=== PATIENT | female | born 1970 | race Two or more races ===

== ENCOUNTER 2024-05-09 09:24 | Inpatient (IN) | payer MEDICAID ==
[~2024-05-09] VITALS: Ht 162.6 cm; Wt 64.4 kg
[~2024-05-09 09:24] MED LIST: METF-370 PO; PAR20T PO
--- NOTE | 2024-05-09 09:37 | ED.PDOC ---
HPI Comments 54 y.o female presents to the ED via EMS for an initial complaint of chest pain associated with a headache and dizziness. Upon ED arrival, patient expresses total body pain including chest and generalized malaise. EMS reports patient is being taken care of by family at home but had not received her medications for a while. Patient has a history of abdominal cancer diagnosed one year ago, liver disease, ETOH abuse, HTN, and DM. Patient reports last alcohol drink was one yea r ago. Patient is a poor historian, unable to provide full medical history. No family present upon assessment. Chief Complaint: Chest Pain Time Seen by MD: 09:27 Primary Care Provider: INÉS Chopra Notes: Nurses Notes, Speech Language Pathology Assistant Notes, Medications, Allergies Allergies: Coded Allergies: NO KNOWN ALLERGIES (Unverified , 06/17/13) Home Meds Reported Medications Metformin Hydrochloride (Metformin Hcl) 500 Mg Tab, 500 MG PO DAILY, TAB 06/17/13 Paroxetine (PAXIL TABLET) 20 Mg Tb, 40 MG PO DAILY 06/17/13 Information Source: Patient, Emergency Med Personnel Mode of Arrival: EMS Severity: Moderate Timing: Came on: Gradually Prehospital treatment: 12 Lead EKG, Wood Filler Location: Substernal Quality: Aching Onset: At Rest Cardiac Risk Factors: Smoker, HTN, Diabetes Modifying Factors: Nothing Past Medical History PAST MEDICAL HISTORY: Cancer (abdominal ), DM, HTN, Liver Surgical History: Cholecystectomy, DOCUMENT IMAGING MANAGER History: No Pertinent DOCUMENT IMAGING MANAGER History Family History Family History: Unobtainable Social History Smoker: Cigarettes Alcohol: Occasionally Drugs: Denies Drug Use Lives In: Home Constitutional: denies: chills, diaphoresis, fatigue, fever, malaise, sweats, weakness, others EENTM: denies: blurred vision, double vision, ear bleeding, ear discharge, ear drainage, ear pain, ear ringing, eye pain, eye redness, hearing loss, mouth pain, mouth swelling, nasal discharge, nose bleeding, nose congestion, nose pain, photophobia, tearing, throat pain, throat swelling, voice changes, others Respiratory: denies: cough, hemoptysis, orthopnea, SOB at rest, shortness of breath, SOB with excertion, stridor, wheezing, others Cardiovascular: reports: chest pain; denies: dizzy spells, diaphoresis, Dyspnea on exertion, edema, irregular heart beat, left arm pain, lightheadedness, palpitations, PND, syncope, others Gastrointestinal: denies: abdomen distended, abdominal pain, blood streaked bowels, constipated, diarrhea, dysphagia, difficulty swallowing, hematemesis, melena, nausea, poor appetite, poor fluid intake, rectal bleeding, rectal pain, vomiting, others Genitourinary: denies: abnormal vagina bleeding, burning, dyspareunia, dysuria, flank pain, frequency, hematuria, incontinence, pain, , vagina discharge, urgency, others Neurological: reports: dizziness, headache; denies: fainting, left sided numbness, left sided weakness, numbness, paresthesia, pre-existing deficit, right sided numbness, right sided weakness, seizure, speech problems, tingling, tremors, weakness, others Musculoskeletal: reports: muscle pain; denies: back pain, gout, joint pain, joint swelling, muscle stiffness, neck pain, others Integumetry: denies: bruises, change in color, change in hair/nails, dryness, laceration, lesions, lumps, rash, wounds, others Allergic/Immunocompromised: denies: Difficulty Healing, Frequent Infections, Hives, Itching, others Hematologic/Lymphatic: denies: anemia, blood clots, easy bleeding, easy bruising, swollen glands, others Endocrine: denies: excessive hunger, excessive sweating, excessive thirst, excessive urination, flushing, intolerance to cold, intolerance to heat, unexplained weight gain, unexplained weight loss, others Psychiatric: denies: anxiety, bipolar disorder, depression, hopeless, panic disorder, schizophrenia, sleepless, suicidal, others All Other Systems: Reviewed and Negative Physical Exam General Appearance: Moderate Distress HEENT: Scleral Icterus (L), Scleral Icterus (R) Neck: Full Range of Motion, Non-Tender, Normal, Normal Inspection Respiratory: Chest Non-Tender, Lungs Clear, No Accessory Muscle Use, No Respiratory Distress, Normal Breath Sounds Cardiovascular: No Edema, No JVD, No Murmur, No Gallop, Normal Peripheral Pulses, Regular Rate/Rhythm Breast Exam: Deferred Gastrointestinal: Soft Genitalia: Deferred Pelvic: Deferred Rectal: Deferred Extremities: No calf tenderness, Normal inspection Musculoskeletal : Apperance: Normal Neurologic: Alert Cerebellar Function: NOT DONE Reflexes: NOT DONE Skin: Pallor Peripheral Pulses: 3+ Radial (R), 3+ Radial (L) Lymphatic: No Adenopathy Was a procedure done? Was a procedure done?: No CP Differential Dx Differential Diagnosis: A-fib, A-Flutter, Angina, Anxiety / Panic Attack, Electrolyte Disorder Differential Diagnosis: Angina, Chest Wall Pain, Cholelithiasis, Costochondritis, Esophageal reflux/spasm, Gastritis, Myocardial Infarction, Pericarditis X-Ray, Labs, Meds, VS Vital Signs Date Time Temp Pulse Resp B/P (MAP) Pulse Ox O2 Delivery O2 Flow Rate FiO2 05/09/24 10:35 181/103 05/09/24 10:19 79 05/09/24 09:33 97.7 78 15 198/105 (136) 98 05/09/24 09:31 83 Lab Test 05/09/24 09:39 Range/Units White Blood Count 6.0 4.4-10.8 10^3/uL Red Blood Count 5.69 H 4.0-5.20 10^6/uL Hemoglobin 16.9 H 12.2-16.2 g/dL Hematocrit 50.4 H 36.0-46.0 % Mean Corpuscular Volume 88.7 80.0-100.0 fL Mean Corpuscular Hemoglobin 29.7 28.0-32.0 pg Mean Corpuscular Hemoglobin Concent 33.5 32.0-36.0 g/dL Red Cell Distribution Width 14.7 H 11.8-14.3 % Platelet Count 186 140-450 10^3/uL Mean Platelet Volume 9.1 6.9-10.8 fL Neutrophils (%) (Auto) 74.8 37.0-80.0 % Lymphocytes (%) (Auto) 16.8 10.0-50.0 % Monocytes (%) (Auto) 8.2 0.0-12.0 % Eosinophils (%) (Auto) 0.0 0.0-7.0 % Basophils (%) (Auto) 0.2 0.0-2.0 % Neutrophils # (Auto) 4.5 1.6-8.6 10 ^3/uL Lymphocytes # (Auto) 1.0 0.4-5.4 10 ^3/uL Monocytes # (Auto) 0.5 0-1.3 10 ^3/uL Eosinophils # (Auto) 0 0-0.8 10 ^3/uL Basophils # (Auto) 0 0-0.2 10 ^3/uL Nucleated Red Blood Cells 0.1 % Sodium Level 132 L 136-145 mmol/L Potassium Level 4.7 3.5-5.1 mmol/L Chloride Level 97 L 98-107 mmol/L Carbon Dioxide Level 29 20-31 mmol/L Anion Gap 6 5-15 Blood Urea Nitrogen 13 9-23 mg/dL Creatinine 0.69 0.550-1.02 mg/dL Glomerular Filtration Rate Calc 102 >90 mL/min BUN/Creatinine Ratio 18.8 10.0-20.0 Serum Glucose 426 *H 74-106 mg/dL Calcium Level 9.3 8.7-10.4 mg/dL Total Bilirubin 0.5 0.2-1.0 mg/dL Aspartate Amino Transferase (AST) 28 13-40 U/L Alanine Aminotransferase (ALT) 33 7-40 U/L Alkaline Phosphatase 169 H 46-116 U/L Troponin I High Sensitivity 200 *H </=34 ng/L Total Protein 6.0 5.7-8.2 g/dL Albumin 3.3 3.2-4.8 g/dL Current Medications Medications (Trade) Dose Ordered Sig/Lou Route Start Time Stop Time Status Last Admin Hydralazine HCl (Apresoline Injection) 10 mg ONCE ONCE IV 05/09/24 10:00 05/09/24 10:01 DC 05/09/24 10:35 Aspirin 325 mg ONCE ONCE PO 05/09/24 10:00 05/09/24 10:01 DC 05/09/24 10:36 Patient alert. Complaining of chest pain. Blood pressure elevated. Saturation pristine on room air. Liver disease. States that she has stopped drinking a year ago. Continues to smoke cigarettes. Counseled patient on effects of smoking cigarettes for 15 minutes. Was given hydralazine. Was given aspirin. Reviewed her previous visit. Explained to the patient. Continuous cardiac monitoring. EKG reviewed does not show any acute changes. Time of 1ST Reevaluation: 09:37 Reevaluation 1ST: Unchanged Patient Education/Counseling: Diagnosis Family Education/Counseling: No Family Present Additional Information The following tests were ordered, and results were reviewed by me: Labs, XY, EKG, PHA Additional Information was gathered from interviewing the following independent historians: Paramedics I reviewed and agreed with the following test results read by other providers: X-Ray IMPRESSION: Small left pleural effusion and left retrocardiac opacity. Cardiomegaly. I discussed treatment and results with medical personnel and patient Departure 1 Departure Time of Disposition: 09:51 Impression: Primary Impression: Hypertensive emergency Additional Impressions: Chest pain of unknown etiology Uncontrolled diabetes mellitus Qualified Codes: E13.65 - Other specified diabetes mellitus with hyperglycemia Disposition: ADMITTED INPATIENT Admit to: Med Surg Condition: Guarded Critical Care Note Critical Care Time?: Yes (45 min-critical care time only) Stability Stability form required: No Heart Score Heart Score: Heart Score Response (Comments) Value History Slightly Suspicious 0 EKG Normal 0 Age 45-64 1 Risk Factors >3 or Hx ASHD 2 Troponin Normal limit 0 Total 3 I personally scribed for GIOVANNA AVILA MD ([email or web address]) on 05/09/24 at 09:37. Electronically submitted by Hanna López ([facility]). I personally scribed for GIOVANNA AVILA MD ([email or web address]) on 05/09/24 at 10:24. Electronically submitted by Hanna López ([facility]). I personally scribed for GIOVANNA AVILA MD ([email or web address]) on 05/09/24 at 11:22. Electronically submitted by Hanna López ([facility]). I personally scribed for GIOVANNA AVILA MD ([email or web address]) on 05/09/24 at 11:48. Electronically submitted by Hanna López ([facility]). GIOVANNA AVILA MD May 09, 2024 09:37
[2024-05-09 10:08] LABS: Basophils # (auto) 0 10 ^3/uL (0-0.2); Basophils % (auto) 0.2 % (0.0-2.0); Eosinophils # (auto) 0 10 ^3/uL (0-0.8); Hematocrit 50.4 % (36.0-46.0); Hemoglobin 16.9 g/dL (12.2-16.2); Lymphocytes % (auto) 16.8 % (10.0-50.0); Mean Corpuscular Hemoglobin 29.7 pg (28.0-32.0); Mean Corpuscular Hgb Conc. 33.5 g/dL (32.0-36.0); Mean Corpuscular Volume 88.7 fL (80.0-100.0); Monocytes # (auto) 0.5 10 ^3/uL (0-1.3); Monocytes % (auto) 8.2 % (0.0-12.0); Neutrophils # (auto) 4.5 10 ^3/uL (1.6-8.6); Neutrophils % (auto) 74.8 % (37.0-80.0); Nucleated Red Blood Cells % 0.1 %; Platelet Count (auto) 186 10^3/uL (140-450); Red Blood Cells 5.69 10^6/uL (4.0-5.20); Red Cell Distribution Width 14.7 % (11.8-14.3)
--- NOTE | 2024-05-09 10:13 | DVH ---
EXAM: XY CHEST PORTABLE Indication: CP Technique: Single frontal view of the chest was obtained Comparison: None FINDINGS: Lines and Tubes: None Lungs: Left retrocardiac opacity. Pleura: Small left pleural effusion. No pneumothorax. Cardiomediastinal contours: Cardiomegaly. Atherosclerotic vascular calcifications of the thoracic aor ta are noted. Bones: No acute osseous abnormality. IMPRESSION: Small left pleural effusion and left retrocardiac opacity. Cardiomegaly.
[2024-05-09] MEDS: hydrALAZINE HCL 20 MG/ML VL IV ONE (10:35)
[2024-05-09] MEDS: ASPirin 325 MG TAB PO ONE (10:36)
[2024-05-09 10:38] LABS: Alanine Aminotransferase 33 U/L (7-40); Albumin 3.3 g/dL (3.2-4.8); Anion Gap 6 (5-15); Aspartate Aminotransferase 28 U/L (13-40); BUN/Creatinine Ratio 18.8 (10.0-20.0); Bilirubin, Total 0.5 mg/dL (0.2-1.0); Blood Urea Nitrogen 13 mg/dL (9-23); Calcium 9.3 mg/dL (8.7-10.4); Carbon Dioxide 29 mmol/L (20-31); Potassium 4.7 mmol/L (3.5-5.1)
[2024-05-09 10:44] LABS: Alkaline Phosphatase 169 U/L (46-116); Chloride 97 mmol/L (98-107); Glucose 426 mg/dL (74-106); Sodium 132 mmol/L (136-145)
[2024-05-09] MEDS ORDERED: MAALOX PLUS or MAALOX 30 ML PO PRN (11:15)
[2024-05-09] MEDS ORDERED: ACETAMINOPHEN 325 MG TAB PO PRN (11:15)
[2024-05-09] MEDS: SODIUM CHLORIDE 0.9% 1,000 ML IV SCH (11:15)
[2024-05-09] MEDS ORDERED: ZOLPIDEM TARTRATE 5 MG TAB PO PRN (11:15)
[2024-05-09] MEDS ORDERED: MORPHINE SULFATE INJ 2 MG/ml SYRG IV PRN (11:15)
[2024-05-09] MEDS ORDERED: NITROGLYCERIN 0.4 MG SL TAB SL PRN ×2 (11:15)
[2024-05-09] MEDS: LISINOPRIL 20 MG TAB PO SCH (11:15)
[2024-05-09] MEDS ORDERED: ONDANSETRON HCL 4 MG/2 ML VIAL IV PRN (11:15)
[2024-05-09] MEDS ORDERED: MORPHINE SULFATE 4 MG/ML SYR/VIAL IV PRN (11:15)
--- NOTE | 2024-05-09 11:43 | DVHHP2 ---
History of Present Illness Reason for Visit: Chest pain History of Present Illness 54-year-old patient with morbid obesity past medical history of hypertension diabetes and smoker giving her 3 comorbid conditions patient comes to the ED with complaints of chest pain patient states that she has been having chest pain and also total body pain and general weakness for the past few days but today her main complaint is having pain in the chest patient states that she has a history of cancer in the abdomen that was diagnosed a year ago has a history of alcohol abuse and states that she has discontinued drinking alcohol since a year ago when she was initially diagnosed patient does present as a poor historian a nd unable to give a very clear picture but the majority of her complaint is that she is currently having chest pain that is not alleviating or not improving the plan as of now is to admit based on ED recommendation Cardiovascular: HTN Smoke: 1 pack per day ALCOHOL: none (Former heavy drinker) Review of Systems Constitutional: Yes: Weakness; No: Fever, Chills, Sweats, Malaise, Other Eyes: No: Pain, Vision change, Conjunctivae inflammation, Eyelid inflammation, Other, Redness ENT: No: Ear pain, Ear discharge, Nose pain, Nose discharge, Nose congestion, Mouth pain, Mouth swelling, Throat pain, Throat swelling, Other Respiratory: Cough, Dry, Shortness of breath; No: SOB with excertion, Wheezing, Hemoptysis, Pleuritic Pain, Sputum, Wheezing, Other Cardiovascular: Chest Pain, Palpitations; No: Orthopnea, Paroxysmal Noc. Dyspnea, Edema, Lt Headedness, Other Gastrointestinal: No: Nausea, Vomiting, Abdominal Pain, Diarrhea, Constipation, Melena, Hematochezia, Other Genitourinary: No Dysuria, No Frequency, No Incontinence, No Hematuria, No Retention, No Other Musculoskeletal: No: other, neck pain, shoulder pain, arm pain, back pain, hand pain, leg pain, foot pain Skin: No: Rash, Lesions, Jaundice, Bruising, Other Neurological: No: Weakness, Numbness, Incoordination, Change in speech, Confusion, Seizures, Other Allergies: Coded Allergies: NO KNOWN ALLERGIES (Unverified , 06/17/13) Exam Vital Signs Vital Signs Date Time Temp Pulse Resp B/P (MAP) Pulse Ox O2 Delivery O2 Flow Rate FiO2 05/09/24 10:35 181/103 05/09/24 10:19 79 05/09/24 09:33 97.7 15 98 General Appearance: Alert, Oriented X3, Cooperative HEENT: Atraumatic, PERRLA Respiratory: Clear to auscultation Cardiovascular: Regular rate, Normal S1 Abdominal: Normal bowel sounds, Soft Extremities: No clubbing, No cyanosis Skin: No rashes, No breakdown Neuro: Normal speech Psych/Mental Status: Mood NL Labs/Xrays Labs Test 05/09/24 11:30 05/09/24 09:39 Range/Units White Blood Count 6.0 4.4-10.8 10^3/uL Red Blood Count 5.69 H 4.0-5.20 10^6/uL Hemoglobin 16.9 H 12.2-16.2 g/dL Hematocrit 50.4 H 36.0-46.0 % Mean Corpuscular Volume 88.7 80.0-100.0 fL Mean Corpuscular Hemoglobin 29.7 28.0-32.0 pg Mean Corpuscular Hemoglobin Concent 33.5 32.0-36.0 g/dL Red Cell Distribution Width 14.7 H 11.8-14.3 % Platelet Count 186 140-450 10^3/uL Mean Platelet Volume 9.1 6.9-10.8 fL Neutrophils (%) (Auto) 74.8 37.0-80.0 % Lymphocytes (%) (Auto) 16.8 10.0-50.0 % Monocytes (%) (Auto) 8.2 0.0-12.0 % Eosinophils (%) (Auto) 0.0 0.0-7.0 % Basophils (%) (Auto) 0.2 0.0-2.0 % Neutrophils # (Auto) 4.5 1.6-8.6 10 ^3/uL Lymphocytes # (Auto) 1.0 0.4-5.4 10 ^3/uL Monocytes # (Auto) 0.5 0-1.3 10 ^3/uL Eosinophils # (Auto) 0 0-0.8 10 ^3/uL Basophils # (Auto) 0 0-0.2 10 ^3/uL Nucleated Red Blood Cells 0.1 % Sodium Level 132 L 136-145 mmol/L Potassium Level 4.7 3.5-5.1 mmol/L Chloride Level 97 L 98-107 mmol/L Carbon Dioxide Level 29 20-31 mmol/L Anion Gap 6 5-15 Blood Urea Nitrogen 13 9-23 mg/dL Creatinine 0.69 0.550-1.02 mg/dL Glomerular Filtration Rate Calc 102 >90 mL/min BUN/Creatinine Ratio 18.8 10.0-20.0 Serum Glucose 426 *H 74-106 mg/dL Calcium Level 9.3 8.7-10.4 mg/dL Total Bilirubin 0.5 0.2-1.0 mg/dL Aspartate Amino Transferase (AST) 28 13-40 U/L Alanine Aminotransferase (ALT) 33 7-40 U/L Alkaline Phosphatase 169 H 46-116 U/L Total Protein 6.0 5.7-8.2 g/dL Albumin 3.3 3.2-4.8 g/dL Assessment/Plan Assessment/Plan Admit to telemetry NSTEMI With the associated chest pain Patient with troponins greater than 200 We will follow chest pain protocol Cardiology consult Patient also with hypertensive urgency the evaluation of blood pressure shows blood pressure on the systolic side of 200 versus the does diastolic above 100 Patient with also severe hyperglycemia blood sugars above 400 No anion gap noted however patient is at both a fluid deficit And hypertensive urgency We will start with medication terms of continued management P.r.n. medication for the management with hydralazine Aggressive insulin sliding scale Long-acting insulin to be given b.i.d. for long-term control Patient requires IV hydration Fluid management will be rodriguez here in managing patient's blood pressure in the setting of also giving fluids will also be important Morbid obesity BMI > 30 Plan discussed with: Patient My Orders Orders - NATO ROBERSON MD Procedure Category Date Status Time * Cardiology Consult CONS 05/09/24 Transmitted 11:13 Glucose Blood PHA 05/09/24 In Process (Accu-Chek Comfort 12:00 Dextrose 50% Syringe PHA 05/09/24 In Process 11:15 Paroxetine Tablet PHA 05/10/24 In Process (Paxil Tablet) 10:00 Insulin Lantus PHA 05/09/24 In Process (Glargine) (Lantus) 22:00 Hydralazine Injection PHA 05/09/24 In Process (Apresoline Inject 11:15 Admit ADMIT 05/09/24 Transmitted 11:13 Code Status CODE 05/09/24 Transmitted 11:13 Sodium Chloride 0.9% PHA 05/09/24 In Process 11:15 Aspirin Tablet PHA 05/10/24 In Process 10:00 Atorvastatin (Lipitor) PHA 05/09/24 In Process 22:00 Metoprolol Tartrate PHA 05/09/24 In Process Tablet (Lopressor Ta 11:15 Lisinopril Tablet PHA 05/09/24 In Process (Zestril Tablet) 11:15 Acetaminophen Tablet PHA 05/09/24 In Process (Tylenol Tablet) 11:15 Zolpidem Tartrate PHA 05/09/24 In Process (Ambien) 11:15 Lorazepam Tablet PHA 05/09/24 In Process (Ativan Tablet) 11:15 Docusate Sodium PHA 05/10/24 In Process Capsule (Colace 10:00 Complete Blood Count LAB 05/10/24 Verified 04:00 Basic Metabolic Panel LAB 05/10/24 Verified 04:00 Ondansetron Hcl PHA 05/09/24 In Process (Zofran) 11:15 Electrocardigram EKG 05/09/24 Logged 11:13 Alum & Mag PHA 05/09/24 In Process Hydrox-Simethicone 11:15 Cardiac JANY 05/09/24 In Process Rehabilitation - Outpa Nitroglycerin PHA 05/09/24 In Process Sublingual (Ntrostat 11:15 Morphine Sulfate PHA 05/09/24 In Process Injection 11:15 Stat Ekg For Chest JANY 05/09/24 In Process Pain 11:13 Notify Md Of Changes JANY 05/09/24 In Process From Base 11:13 Linotype Worker For JANY 05/09/24 In Process 24 Hours 11:13 Emergency Dysrhythmia JANY 05/09/24 In Process Protocol 11:13 Rhythm Strips Once JANY 05/09/24 In Process Every Shift 11:13 Oxygen By Nasal RT 05/09/24 Transmitted Cannula 11:13 Electrocardigram EKG 05/09/24 Logged 12:13 Electrocardigram EKG 05/09/24 Logged 14:13 Insulin R (Human) PHA 05/09/24 In Process (Insulin R) 12:00 Problem List: (1) Chest pain of unknown etiology (2) Hypertensive emergency (3) Uncontrolled diabetes mellitus (4) possible acute coronary syndrome (5) Acute chest pain Date of Service: May 09, 2024 Billing Provider: NATO ROBERSON MD Common Visit Codes: [id number] INP/OBS CARE (HIGH) NATO ROBERSON MD May 09, 2024 11:43
[2024-05-09] MEDS: InsuLIN REG 1unit/0.01ml Soln (100units/ml) SC SCH (12:00)
[2024-05-09] MEDS: ACCU-CHEK COMFORT CURVE STRIP VI SCH (12:26)
[2024-05-09] MEDS: METOPROLOL TARTRATE 25 MG TAB PO SCH (12:38)
[2024-05-09] MEDS: LORazepam 0.5 MG TAB PO PRN (12:38)
[2024-05-09] MEDS: InsuLIN REG 1unit/0.01ml Soln (100units/ml) IV ONE (12:45)
[2024-05-09] MEDS: NIFEdipine ER 30 MG TAB PO ONE (16:06)
[2024-05-09 16:41] VITALS: PULSE 89; RESP 20; O2SAT 96
--- NOTE | 2024-05-09 16:42 | DVHINCON2 ---
Date Seen: May 09, 2024 Referring Physician MD Radha Reason for Consultation Elevated troponin, chest pain History of Present Illness This is a 54-year-old female patient who presents to the emergency room with chief complaint of chest pain for one week and bilateral lower extremity swell ing for one month. The patient is a very poor historian. The patient is primarily Italian speaking. The patient describes the chest pain as unprovoked, sharp in nature, midsternal with radiation to bilateral chest. She denies any associated symptoms. Of note, the patient came in with a blood pressure reaching as high as 198/105. Initial twelve lead electrocardiogram reveals no rmal sinus rhythm without any significant ST segment changes. Initial troponin level of 200ng/L with down trend thereafter. Significant past medical history includes hypertension, hyperlipidemia, unspecified cancer, type 2 diabetes mellitus, liver disease, previous alcohol dependence, and tobacco use. Per bedside RN, patient was being taken care of by family, but recently had a disagreement and has not been taking her medications as prescribed. Patient denies following up with a automotive teacher in the outpatient setting. Past Medical History Past medical history reviewed. No other significant than mentioned above. Past Surgical History Cholecystectomy Family History Family history reviewed. Social History Patient reports previous alcoholism, quit drinking approximately one year ago Patient has a 10 pack-year history, smokes approximately half a pack per day Patient denies any illicit drug use Allergies: Coded Allergies: NO KNOWN ALLERGIES (Unverified , 06/17/13) Home Meds Reported Medications Metformin Hydrochloride (Metformin Hcl) 500 Mg Tab, 500 MG PO DAILY, TAB 06/17/13 Paroxetine (PAXIL TABLET) 20 Mg Tb, 40 MG PO DAILY 06/17/13 Home Meds Home medications reviewed. Current Medications Current Medications Medications (Trade) Dose Ordered Sig/Lou Route PRN Reason Start Time Stop Time Status Last Admin Diagnostic Test (Pha) (Accu-Chek Comfort Curve T) 1 strip IQ4HR 05/09/24 12:00 05/09/24 16:06 Insulin Human Regular (InsuLIN R) IQ4HR SC 05/09/24 12:00 Dextrose 50 ml UD PRN IV Blood Sugar LESS THAN 60 05/09/24 11:15 Paroxetine HCl (Paxil Tablet) 40 mg DAILY PO 05/10/24 10:00 Insulin Glargine (Lantus) 20 units BID@0700,2200 SC 05/09/24 22:00 Hydralazine HCl (Apresoline Injection) 10 mg Q6HPRN PRN IV SBP>160 05/09/24 11:15 Sodium Chloride 1,000 ml @ 100 mls/hr Q10H IV 05/09/24 11:15 05/09/24 11:15 Aspirin 81 mg DAILY PO 05/10/24 10:00 Atorvastatin Calcium (Lipitor) 80 mg HS PO 05/09/24 22:00 Metoprolol Tartrate (Lopressor Tablet) 25 mg Q12HR PO 05/09/24 11:15 05/09/24 12:38 Lisinopril (Zestril Tablet) 20 mg DAILY PO 05/09/24 11:15 05/09/24 11:15 Morphine Sulfate 2 mg Q30MP PRN IV FOR CHEST PAIN 05/09/24 11:15 UNV Acetaminophen (Tylenol Tablet) 650 mg Q6HP PRN PO MILD PAIN (1-3 PAIN SCALE) 05/09/24 11:15 Zolpidem Tartrate (Ambien) 5 mg QHSP PRN PO FOR INSOMNIA 05/09/24 11:15 Lorazepam (Ativan Tablet) 0.5 mg Q6HP PRN PO ANXIETY 05/09/24 11:15 05/09/24 12:38 Docusate Sodium (Colace Capsule) 100 mg DAILY PO 05/10/24 10:00 Nitroglycerin (Ntrostat Sublingual) 0.4 mg Q5MINP PRN SL FOR CHEST PAIN 05/09/24 11:15 UNV Ondansetron HCl (Zofran) 4 mg Q4HP PRN IV NAUSEA / VOMITING 05/09/24 11:15 Al Hydrox/Mg Hydrox/Simethicone (Maalox Plus) 30 ml Q6HPRN PRN PO FOR STOMACH DISTRESS 05/09/24 11:15 Nitroglycerin (Ntrostat Sublingual) 0.4 mg Q5MINP PRN SL FOR CHEST PAIN 05/09/24 11:15 Morphine Sulfate 2 mg Q30M PRN IV FOR CHEST PAIN 05/09/24 11:15 Review of Systems Constitutional: No symptom reported Ears, Nose, & Throat: No symptom reported Eyes: No symptom reported Neurological: No symptoms reported Pulmonary/Respiratory: No symptoms reported Cardiovascular: Chest pain, bilateral lower extremity edema Gastrointestinal: No symptom reported Genitourinary: No symptom reported Musculoskeletal: No symptom reported Skin: No symptom reported Psychiatric: No symptom reported Endocrine: No symptom reported Hematologic/Lymphatic: No symptom reported Vital Signs Vital Signs Date Time Temp Pulse Resp B/P (MAP) Pulse Ox O2 Delivery O2 Flow Rate FiO2 05/09/24 16:06 128/64 05/09/24 16:00 89 20 96 05/09/24 12:00 98.2 98.2 Physical Exam General Appearance: Unkempt, disheveled appearance Pulmonary/Respiratory: Clear, bilateral breaths sounds. Cardiovascular/Chest: Regular rate and rhythm. Peripheral Pulses: 2+ Radial (R). 2+ Radial (L). 2+ Pedal (R). 2+ Pedal (L) Abdominal Exam: Normal bowel sounds. Ankle Exam: 1+ pitting edema Lower extremities: 1+ pitting edema Neuro/Mental Status: A/OX4, coherent. Thoughts/Psych: Normal thought pattern. Appropriate mood and affect. Good judgment and insight. Appearance: No acute distress. Skin Exam: Normal inspection. Normal color. Warm and dry. Labs/Diagnostic Data Labs Test 05/09/24 16:09 05/09/24 11:30 05/09/24 09:39 Range/Units POC Glucose 382 H 70-106 mg/dl Troponin I High Sensitivity 174 *H </=34 ng/L White Blood Count 6.0 4.4-10.8 10^3/uL Red Blood Count 5.69 H 4.0-5.20 10^6/uL Hemoglobin 16.9 H 12.2-16.2 g/dL Hematocrit 50.4 H 36.0-46.0 % Mean Corpuscular Volume 88.7 80.0-100.0 fL Mean Corpuscular Hemoglobin 29.7 28.0-32.0 pg Mean Corpuscular Hemoglobin Concent 33.5 32.0-36.0 g/dL Red Cell Distribution Width 14.7 H 11.8-14.3 % Platelet Count 186 140-450 10^3/uL Mean Platelet Volume 9.1 6.9-10.8 fL Neutrophils (%) (Auto) 74.8 37.0-80.0 % Lymphocytes (%) (Auto) 16.8 10.0-50.0 % Monocytes (%) (Auto) 8.2 0.0-12.0 % Eosinophils (%) (Auto) 0.0 0.0-7.0 % Basophils (%) (Auto) 0.2 0.0-2.0 % Neutrophils # (Auto) 4.5 1.6-8.6 10 ^3/uL Lymphocytes # (Auto) 1.0 0.4-5.4 10 ^3/uL Monocytes # (Auto) 0.5 0-1.3 10 ^3/uL Eosinophils # (Auto) 0 0-0.8 10 ^3/uL Basophils # (Auto) 0 0-0.2 10 ^3/uL Nucleated Red Blood Cells 0.1 % Sodium Level 132 L 136-145 mmol/L Potassium Level 4.7 3.5-5.1 mmol/L Chloride Level 97 L 98-107 mmol/L Carbon Dioxide Level 29 20-31 mmol/L Anion Gap 6 5-15 Blood Urea Nitrogen 13 9-23 mg/dL Creatinine 0.69 0.550-1.02 mg/dL Glomerular Filtration Rate Calc 102 >90 mL/min BUN/Creatinine Ratio 18.8 10.0-20.0 Serum Glucose 426 *H 74-106 mg/dL Calcium Level 9.3 8.7-10.4 mg/dL Total Bilirubin 0.5 0.2-1.0 mg/dL Aspartate Amino Transferase (AST) 28 13-40 U/L Alanine Aminotransferase (ALT) 33 7-40 U/L Alkaline Phosphatase 169 H 46-116 U/L Total Protein 6.0 5.7-8.2 g/dL Albumin 3.3 3.2-4.8 g/dL Assessment Hypertensive urgency NSTEMI type II secondary to above Rule out structural heart disease Hyperlipidemia Liver disease Type 2 diabetes mellitus ?Cancer History of alcohol abuse Medical noncompliance Plan/Recommendation We will continue with the following plan/recommendations (Dr. Mcarthur): * Echocardiogram to evaluate cardiac function * Aggressive BP control * Up titrate as tolerated * Renal ultrasound to rule out renal artery stenosis * Cardiac surveillance * Labs: TSH, lipid panel, Hgb A1c * UDS Patient seen and examined at bedside with . Elevated troponin level likely secondary to hypertensive urgency. At this time we will recommend aggressive blood pressure control. Thank you for allowing us to care for this patient. Please call with any questions or concerns. Critical care time spent: 44 minutes This medical document was created using an electronic medical record system with voice recognition software and computerized dictation system. Although this document has been carefully reviewed, there might still be some phonetic and typographical errors. Occasional wrong-word or ``sound-alike substitutions may have occurred due to the inherent limitations of voice recognition software. These areas are purely typographical due to imperfections of the software programs and do not reflect any compromise in the patient's medical care. Please read the chart carefully and recognize, using context, where these substitutions have occurred. Plan discussed with: Patient Date of Service: May 09, 2024 Billing Provider: BA MCARTHUR MD Cardiology Common Codes: 09149-[id number] INP/OBS CARE (High) Cardiology Consultation Codes: [id number]-[id number] CONSULT <45MIN RODRIGO LOPEZ May 09, 2024 16:42
[2024-05-09 17:45] VITALS: BP 152/98; PULSE 90; RESP 18; TEMP 97.8; O2SAT 98
[2024-05-09 18:27] VITALS: BP 152/98; PULSE 90; RESP 18; TEMP 97.8; O2SAT 98
--- NOTE | 2024-05-09 19:14 | ECG ---
[facility] Test Date: 2024-05-09 Test Time: 10:17:18 Pat Name: KYLE MCCLURE Department: ED Room: 0289T B Gender: F Instant Print Operator: DARINEL : 1970 Requested By: GIOVANNA AVILA Order Number: [id number] Reading MD: Blayne Garcia Measurements Intervals [place] Rate: 79 P: 60 MD: 142 QRS: -14 QRSD: 86 T: 50 QT: 412 QTc: 473 Interpretive Statements Sinus rhythm Probable left atrial enlargement Anterior infarct, old Electronically Signed On 05-10-2024 12:50:15 PST by Blayne Garcia Please click the below link to view image of tracing.
--- NOTE | 2024-05-09 19:14 | ECG ---
[facility] Test Date: 2024-05-09 Test Time: 09:29:07 Pat Name: KYLE MCCLURE Department: ed Room: [facility]9T B Gender: F Quarry Supervisor: viki : 1970 Requested By: GIOVANNA AVILA Order Number: [id number] Reading MD: Blayne Garcia Measurements Intervals [place] Rate: 83 P: 38 MN: 131 QRS: -2 QRSD: 89 T: 32 QT: 379 QTc: 446 Interpretive Statements Sinus rhythm Ventricular premature complex Probable left atrial enlargement Anterior infarct, old Minimal ST depression Electronically Signed On 05-10-2024 12:50:04 PST by Blayne Garcia Please click the below link to view image of tracing.
[2024-05-09 20:00] VITALS: PULSE 87; RESP 18; O2SAT 95
[2024-05-09 21:00] VITALS: TEMP 97.3
[2024-05-09] MEDS: ATORVASTATIN 20 MG TAB PO SCH (22:20)
[2024-05-09] MEDS: INSULIN LANTUS (GLARGINE) 1 /0.01ml (100units/ml) SC SCH (22:43)
[2024-05-10] VITALS (8 sets, daily range): BP systolic 105–160; BP diastolic 68–92; PULSE 55–83; RESP 13–18; TEMP 97–98.3; O2SAT 92–98
[2024-05-10 06:16] LABS: Basophils # (auto) 0 10 ^3/uL (0-0.2); Basophils % (auto) 0.3 % (0.0-2.0); Eosinophils # (auto) 0 10 ^3/uL (0-0.8); Eosinophils % (auto) 0.2 % (0.0-7.0); Lymphocytes # (auto) 1.3 10 ^3/uL (0.4-5.4); Monocytes # (auto) 0.5 10 ^3/uL (0-1.3)
[2024-05-10 06:19] LABS: Anion Gap 4 (5-15); Carbon Dioxide 26 mmol/L (20-31); Chloride 104 mmol/L (98-107); Hematocrit 51.8 % (36.0-46.0); Hemoglobin 17.8 g/dL (12.2-16.2); Mean Corpuscular Hemoglobin 30.1 pg (28.0-32.0); Mean Corpuscular Hgb Conc. 34.4 g/dL (32.0-36.0); Mean Corpuscular Volume 87.7 fL (80.0-100.0); Monocytes % (auto) 8.6 % (0.0-12.0); Neutrophils % (auto) 68.9 % (37.0-80.0); Nucleated Red Blood Cells % 0.4 %; Platelet Count (auto) 235 10^3/uL (140-450); Potassium 3.7 mmol/L (3.5-5.1); Red Blood Cells 5.91 10^6/uL (4.0-5.20); Red Cell Distribution Width 14.6 % (11.8-14.3); White Blood Cell 5.8 10^3/uL (4.4-10.8)
[2024-05-10 06:20] LABS: Calcium 8.9 mg/dL (8.7-10.4)
[2024-05-10 06:25] LABS: BUN/Creatinine Ratio 18.8 (10.0-20.0); Blood Urea Nitrogen 16 mg/dL (9-23); LDL Cholesterol 71 mg/dL (< 100); Triglycerides 103 mg/dL (< 150)
[2024-05-10 06:27] LABS: Cholesterol 123 mg/dL (< 200)
[2024-05-10 06:32] LABS: Glucose 51 mg/dL (74-106); HDL Cholesterol 36 mg/dL (40-59); Sodium 134 mmol/L (136-145)
[2024-05-10] MEDS: DEXTROSE (50%) 50ML SYRG IV PRN (06:34)
[2024-05-10] MEDS: DOCUSATE SOD 100 MG CAP PO SCH (10:00)
[2024-05-10] MEDS: PARoxetine 20 MG TAB PO SCH (10:20)
[2024-05-10] MEDS: ASPirin 81 mg TAB PO SCH (10:20)
[2024-05-10] MEDS: NIFEdipine ER 30 MG TAB PO SCH (10:21)
--- NOTE | 2024-05-10 10:46 | DVH ---
INDICATION: Hypertension urgency TECHNIQUE: Multiple real-time sonographic images of the kidneys and bladder were obtained. Duplex Doppler evaluation including color Doppler and spectral/pulsed waveform analysis of the bilate ral renal arteries was performed. COMPARISON: None FINDINGS: The right kidney measures 9 cm in length. The right renal echogenicity, contour and cortical thicknes s are within normal limits. No hydronephrosis or large masses/calculi are seen. The left kidney measures 10 cm in length. The left renal echogenicity, contour, and cortical thicknes s are within normal limits. No hydronephrosis or large masses/calculi are seen. Aorta peak systolic velocity, not visualized cm/s Right renal artery peak systolic velocity, 198 cm/s (< 180 cm/s = normal). Left renal artery peak systolic velocity not visualized cm/s (< 180 cm/s = normal). Right RAR : N/a (< 3.5, normal) Left RAR n/a (< 3.5, normal) Right RI: 0.3 (< 0.75, normal) Left RI: N/a (< 0.75, normal) IMPRESSION: Extremely limited examination with nonvisualization of the aorta and incomplete evaluation of the lef t kidney as patient terminated exam prior to completion. Mildly elevated velocities in the right renal artery measuring 198 centimeter/second; nonspecific. *[address]ia [address] Techniques in Noninvasive Vascular Diagnosis 2001
--- NOTE | 2024-05-10 11:23 | DVHPN2 ---
Subjective The patient is seen and examined at bedside. The patient complained of chest pain. No fever or chill. Reviewed: Care Plan, H&P, Labs, Medications, Previous Orders, Radiology Changes from previous H/P or p: No Changes Eyes: No Pain, No Vision change, No Conjunctivae inflammation, No Eyelid inflammation, No Other, No Redness ENT: No Ear pain, No Ear discharge, No Nose pain, No Nose discharge, No Nose congestion, No Mouth pain, No Mouth swelling, No Throat pain, No Throat swelling, No Other Cardiovascular: Chest Pain, Palpitations; No Orthopnea, No Paroxysmal Noc. Dyspnea, No Edema, No Lt Headedness, No Other Respiratory: Cough, Dry, Shortness of breath; No SOB with excertion, No Wheezing, No Hemoptysis, No Pleuritic Pain, No Sputum, No Other Gastrointestinal: No Nausea, No Vomiting, No Abdominal Pain, No Diarrhea, No Constipation, No Melena, No Hematochezia, No Other Genitourinary: No Dysuria, No Frequency, No Incontinence, No Hematuria, No Retention, No Other Musculoskeletal: No other, No neck pain, No shoulder pain, No arm pain, No back pain, No hand pain, No leg pain, No foot pain Skin: No Rash, No Lesions, No Jaundice, No Bruising, No Other Objective Vitals Vital Signs Date Time Temp Pulse Resp B/P (MAP) Pulse Ox O2 Delivery O2 Flow Rate FiO2 05/10/24 10:21 128/73 05/10/24 10:00 59 05/10/24 09:00 97.9 18 98 97.9 05/09/24 20:00 Room Air* 0 21 Intake/Output Intake and Output 05/10/24 07:00 Intake Total 0 ml Output Total 0 ml Balance 0 ml Intake Oral 0 ml Output Urine Total 0 ml General Appearance: Alert, Oriented X3, Cooperative, No acute distress HEENT: Atraumatic, PERRLA, EOMI, Mucous membr. moist/pink Neck: Supple Lungs: Clear to auscultation, Normal air movement Cardiovascular: Regular rate, Normal S1, Normal S2, No murmurs, Gallops, Rubs Abdomen: Normal bowel sounds, Soft, No tenderness Neuro: Cranial nerves 3-12 NL Psych/Mental Status: Mental status NL Medications Current Medications Medications Dose Ordered Sig/Lou Route Start Time Stop Time Status Last Admin Dose Admin Diagnostic Test (Pha) 1 strip IQ4HR 05/09/24 12:00 05/10/24 09:41 1 STRIP Insulin Human Regular IQ4HR SC 05/09/24 12:00 05/10/24 01:29 2 UNITS Dextrose 50 ml UD PRN IV 05/09/24 11:15 05/10/24 06:34 50 ML Paroxetine HCl 40 mg DAILY PO 05/10/24 10:00 05/10/24 10:20 40 MG Insulin Glargine 20 units BID@0700,2200 SC 05/09/24 22:00 05/10/24 07:00 20 UNITS Hydralazine HCl 10 mg Q6HPRN PRN IV 05/09/24 11:15 Sodium Chloride 1,000 ml @ 100 mls/hr Q10H IV 05/09/24 11:15 05/10/24 09:43 100 MLS/HR Aspirin 81 mg DAILY PO 05/10/24 10:00 05/10/24 10:20 81 MG Atorvastatin Calcium 80 mg HS PO 05/09/24 22:00 05/09/24 22:20 80 MG Metoprolol Tartrate 25 mg Q12HR PO 05/09/24 11:15 05/09/24 22:25 25 MG Morphine Sulfate 2 mg Q30MP PRN IV 05/09/24 11:15 UNV Acetaminophen 650 mg Q6HP PRN PO 05/09/24 11:15 Zolpidem Tartrate 5 mg QHSP PRN PO 05/09/24 11:15 Lorazepam 0.5 mg Q6HP PRN PO 05/09/24 11:15 05/09/24 12:38 0.5 MG Docusate Sodium 100 mg DAILY PO 05/10/24 10:00 Nitroglycerin 0.4 mg Q5MINP PRN SL 05/09/24 11:15 UNV Ondansetron HCl 4 mg Q4HP PRN IV 05/09/24 11:15 Al Hydrox/Mg Hydrox/Simethicone 30 ml Q6HPRN PRN PO 05/09/24 11:15 Nitroglycerin 0.4 mg Q5MINP PRN SL 05/09/24 11:15 Morphine Sulfate 2 mg Q30M PRN IV 05/09/24 11:15 Nifedipine 60 mg DAILY PO 05/10/24 10:00 05/10/24 10:21 60 MG Laboratory Results Laboratory Tests 05/10/24 05:14 Chemistry Test 05/10/24 05:14 Calcium Level 8.9 mg/dL (8.7-10.4) Magnesium Level 2.0 mg/dL (1.6-2.6) Lipid panel Test 05/10/24 05:14 Cholesterol Level 123 mg/dL (< 200) HDL Cholesterol 36 mg/dL (40-59) L Triglycerides Level 103 mg/dL (< 150) Cardiac Markers Test 05/10/24 05:14 B-Type Natriuretic Peptide 1018.29 pg/mL (0-100) HgA1c, TSH Test 05/10/24 05:14 Hemoglobin A1c > 14.0 % A1C (<5.7) H Thyroid Stimulating Hormone (TSH) 2.85 uIU/mL (0.55-4.78) Labs and/or images reviewed: Labs reviewed by me Assessment/Plan Assessment/Plan NSTEMI Chest pain Patient with troponins greater than 200 Hypertensive urgency Hyperglycemia. Morbid obesity BMI > 30 History of drug abuse. Continuing current management. Continuing with sliding scale insulin and Lantus. Continuing IV fluid. Appreciate Cardiology input. EF only 20%. Waiting to see if Cardiology will do any invasive procedure. Waiting for urine drug screen Continue HTN meds. Plan discussed with: Patient Date of Service: May 10, 2024 Billing Provider: DEMARCO ODONNELL MD Common Visit Codes: [id number] INP/OBS CARE(HIGH) DEMARCO ODONNELL MD May 10, 2024 11:23
--- NOTE | 2024-05-10 13:06 | DVHSR ---
APPROVED REPORT EXAM: Two-dimensional and M-mode echocardiogram with Doppler and color Doppler. Blood Pressure: 111/68 mmHg INDICATION EVALUATE CARDIAC FUNCTION RISK FACTORS Height: 5'4, Weight: 136 DIMENSIONS LVDd4.2 (3.8-5.7cm)LA (2D)3.3 (1.9-4.0cm)Aortic Root2.8 (2.0-3.7cm) LVDs3.5 (2.5-4.0cm)LA (MM) (1.9-4.0cm)Aortic Cusp Exc1.3 (1.5-2.0cm) EF (%) 40.0 (55-70%)Rt. Atrium4.5 (1.9-4.0cm)Asc. Aorta3.6 cm IVSd1.2 (0.7-1.1cm)RV (D) (1.8-2.4cm) PWd1.1 (0.7-1.1cm) Mitral Valve MitralMitral Stenosis E wave0.67m/sMV Mean GR.mmHg A wave0.76m/sMV Peak GR.mmHg E/A ratio0.92D MVAcm2 DECEL [id number] 1/2 Timems Aortic Valve Aortic ValveAortic Stenosis V10.62m/Leti Mean GR.3mmHg V21.18m/Leti Peak GR.6mmHg LVOT Diameter1.7 (1.8-2.4cm)Doppler AVA1.19cm2 Pulmonic Valve V20.64m/s Tricuspid Valve TR Velocity2.79m/s [id number] Conclusion lvef 20% by visual estimate dilated LV moderate LVH noted global LV dysfunction RV dysfunction noted biatrial enlargement moderate tricuspid regurg small circumferential pericardial effusion notd
--- NOTE | 2024-05-10 15:13 | DVHPN2 ---
Consult Progress Note Subjective Other Systems: Patient denies any cardiac symptoms at time of assessment Patient in normal sinus rhythm on continuous laboratory monitor Objective vital signs Vital Sign Date Time Temp Pulse Resp B/P (MAP) Pulse Ox O2 Delivery O2 Flow Rate FiO2 05/10/24 13:00 97.9 55 16 147/92 (110) 92 97.9 05/10/24 08:00 Room Air* 0 21 Total Intake and Output 05/09/24 05/09/24 05/10/24 15:00 23:00 07:00 Intake Total 0 ml Output Total 0 ml Balance 0 ml medications Current Medications Medications Dose Ordered Sig/Lou Route Start Time Stop Time Status Last Admin Dose Admin Dextrose 50 ml UD PRN IV 05/09/24 11:15 05/10/24 06:34 50 ML Paroxetine HCl 40 mg DAILY PO 05/10/24 10:00 05/10/24 10:20 40 MG Insulin Glargine 20 units BID@0700,2200 SC 05/09/24 22:00 05/10/24 07:00 20 UNITS Hydralazine HCl 10 mg Q6HPRN PRN IV 05/09/24 11:15 Sodium Chloride 1,000 ml @ 100 mls/hr Q10H IV 05/09/24 11:15 05/10/24 09:43 100 MLS/HR Aspirin 81 mg DAILY PO 05/10/24 10:00 05/10/24 10:20 81 MG Atorvastatin Calcium 80 mg HS PO 05/09/24 22:00 05/09/24 22:20 80 MG Metoprolol Tartrate 25 mg Q12HR PO 05/09/24 11:15 05/09/24 22:25 25 MG Morphine Sulfate 2 mg Q30MP PRN IV 05/09/24 11:15 UNV Acetaminophen 650 mg Q6HP PRN PO 05/09/24 11:15 Zolpidem Tartrate 5 mg QHSP PRN PO 05/09/24 11:15 Lorazepam 0.5 mg Q6HP PRN PO 05/09/24 11:15 05/09/24 12:38 0.5 MG Docusate Sodium 100 mg DAILY PO 05/10/24 10:00 Nitroglycerin 0.4 mg Q5MINP PRN SL 05/09/24 11:15 UNV Ondansetron HCl 4 mg Q4HP PRN IV 05/09/24 11:15 Al Hydrox/Mg Hydrox/Simethicone 30 ml Q6HPRN PRN PO 05/09/24 11:15 Nitroglycerin 0.4 mg Q5MINP PRN SL 05/09/24 11:15 Morphine Sulfate 2 mg Q30M PRN IV 05/09/24 11:15 Nifedipine 60 mg DAILY PO 05/10/24 10:00 05/10/24 10:21 60 MG Insulin Human Regular ACHS SC 05/10/24 17:00 Diagnostic Test (Pha) 1 strip ACHS 05/10/24 17:00 Examination: GENERAL:Normal, LUNGS:Normal, CVS:Normal, NEURO:Normal laboratory and microbiology Laboratory Tests 05/10/24 05:14 Test 05/10/24 05:14 Range/Units Serum Glucose 51 L 74-106 mg/dL Problem List/Assessment/Plan Problem List/Assessment/Plan Hypertensive urgency NSTEMI type II secondary to above Acute on chronic decompensated HFrEF, NYHA class III, newly diagnosed Hyperlipidemia Liver disease Type 2 diabetes mellitus, uncontrolled (Hgb A1c 14.0%) ?Cancer History of alcohol abuse Medical noncompliance Plan/Recommendation (Dr. Mcarthur): * Echocardiogram reveals EF 20% * Initiate guideline directed medical therapy for CHF * Strict intake and output, daily weight, maintain fluid restriction * Preload and afterload reduction * Aggressive BP control * Renal ultrasound to rule out renal artery stenosis * Cardiac surveillance * UDS Echocardiogram reveals EF of 20%. Patient denies any previous history of congestive heart failure. Patient denies any previous ischemic workup. We will discuss with MD if patient is a good candidate for invasive ischemic workup at this time. Still pending urine drug screen. Patient appears to be noncompliant. Will further discuss with insurance risk analyst. Thank you for allowing us to care for this patient. Please call with any questions or concerns. This medical document was created using an electronic medical record system with voice recognition software and computerized dictation system. Although this document has been carefully reviewed, there might still be some phonetic and typographical errors. Occasional wrong-word or ``sound-alike substitutions may have occurred due to the inherent limitations of voice recognition software. These areas are purely typographical due to imperfections of the software programs and do not reflect any compromise in the patient's medical care. Please read the chart carefully and recognize, using context, where these substitutions have occurred. Plan discussed with: Patient Date of Service: May 10, 2024 Billing Provider: BA MCARTHUR MD Common Visit Codes: [id number] INP/OBS CARE(HIGH) RODRIGO LOPEZ HEAD OF GEOGRAPHY May 10, 2024 15:12
[2024-05-10] MEDS ORDERED: FURO40TA4 PO (15:20)
[2024-05-10] MEDS: InsuLIN REG 1unit/0.01ml Soln (100units/ml) SC SCH (17:00)
[2024-05-10] MEDS: ACCU-CHEK COMFORT CURVE STRIP VI SCH (18:53)
[2024-05-10] MEDS: FUROSEMIDE 20 MG/2 ML VIAL IV ONE (20:35)
[2024-05-10 22:55] LABS: Urine Bacteria None Seen /hpf (None Seen)
[2024-05-10 23:17] LABS: Amphetamine Screen, Urine Neg (NEGATIVE); Barbiturate Scree,Urine Neg (NEGATIVE); Benzodiazephine Screen, Urine Neg (NEGATIVE)
[2024-05-10 23:18] LABS: Cannabinoid Screen, Urine Neg (NEGATIVE); Cocaine Screen, Urine Neg (NEGATIVE); Opiate Scree,Urine Neg (NEGATIVE); Phencyclidine Screen, Urine Neg (NEGATIVE)
[2024-05-10 23:44] LABS: Urine Blood TRACE /uL (Negative); Urine Budding Yeast LOADED /hpf (None Seen); Urine Clarity Turbid (Clear); Urine Color Light-Yellow (Yellow); Urine Hyaline Cast FEW /lpf (0 - 2); Urine Mucus FEW (None Seen); Urine Protein, UAD 2+ (Negative); Urine Specific Gravity 1.009 (1.001-1.035); Urine Urobilinogen Normal (Negative); Urine WBC 18 /hpf (0 - 5); Urine pH 5.5 (5.0-9.0)
[2024-05-11] VITALS (8 sets, daily range): BP systolic 107–167; BP diastolic 68–106; PULSE 69–84; RESP 16–19; TEMP 97.4–98; O2SAT 90–99
[2024-05-11] MEDS: FUROSEMIDE 20 MG/2 ML VIAL IV SCH (06:13)
[2024-05-11 06:49] LABS: Basophils # (auto) 0 10 ^3/uL (0-0.2); Basophils % (auto) 0.2 % (0.0-2.0); Eosinophils # (auto) 0 10 ^3/uL (0-0.8); Hematocrit 49.5 % (36.0-46.0); Hemoglobin 16.8 g/dL (12.2-16.2); Lymphocytes # (auto) 0.6 10 ^3/uL (0.4-5.4); Lymphocytes % (auto) 7.1 % (10.0-50.0); Mean Corpuscular Hemoglobin 29.9 pg (28.0-32.0); Mean Corpuscular Hgb Conc. 33.9 g/dL (32.0-36.0); Mean Corpuscular Volume 88.2 fL (80.0-100.0); Monocytes # (auto) 0.5 10 ^3/uL (0-1.3); Monocytes % (auto) 5.9 % (0.0-12.0); Neutrophils # (auto) 7.3 10 ^3/uL (1.6-8.6); Neutrophils % (auto) 86.8 % (37.0-80.0); Nucleated Red Blood Cells % 0.2 %; Platelet Count (auto) 205 10^3/uL (140-450); Red Blood Cells 5.61 10^6/uL (4.0-5.20); Red Cell Distribution Width 14.8 % (11.8-14.3); White Blood Cell 8.4 10^3/uL (4.4-10.8)
[2024-05-11 07:04] LABS: Anion Gap 6 (5-15); Carbon Dioxide 26 mmol/L (20-31); Chloride 101 mmol/L (98-107); Potassium 3.9 mmol/L (3.5-5.1)
[2024-05-11 07:10] LABS: BUN/Creatinine Ratio 29.1 (10.0-20.0); Blood Urea Nitrogen 16 mg/dL (9-23)
[2024-05-11 07:15] LABS: Glucose 61 mg/dL (74-106); Sodium 133 mmol/L (136-145)
--- NOTE | 2024-05-11 10:26 | DVHPN2 ---
Subjective The patient is seen and examined at bedside. Very tired today. No fever or chill. Reviewed: Care Plan, H&P, Labs, Medications, Previous Orders, Radiology Changes from previous H/P or p: No Changes Eyes: No Pain, No Vision change, No Conjunctivae inflammation, No Eyelid inflammation, No Other, No Redness ENT: No Ear pain, No Ear discharge, No Nose pain, No Nose discharge, No Nose congestion, No Mouth pain, No Mouth swelling, No Throat pain, No Throat swelling, No Other Cardiovascular: Chest Pain, Palpitations; No Orthopnea, No Paroxysmal Noc. Dyspnea, No Edema, No Lt Headedness, No Other Respiratory: Cough, Dry, Shortness of breath; No SOB with excertion, No Wheezing, No Hemoptysis, No Pleuritic Pain, No Sputum, No Other Gastrointestinal: No Nausea, No Vomiting, No Abdominal Pain, No Diarrhea, No Constipation, No Melena, No Hematochezia, No Other Genitourinary: No Dysuria, No Frequency, No Incontinence, No Hematuria, No Retention, No Other Musculoskeletal: No other, No neck pain, No shoulder pain, No arm pain, No back pain, No hand pain, No leg pain, No foot pain Skin: No Rash, No Lesions, No Jaundice, No Bruising, No Other Objective Vitals Vital Signs Date Time Temp Pulse Resp B/P (MAP) Pulse Ox O2 Delivery O2 Flow Rate FiO2 05/11/24 09:30 97.7 75 16 155/98 (117) 99 97.7 05/10/24 20:00 Room Air* 0 21 Intake/Output Intake and Output 05/11/24 07:00 Intake Total 400 ml Output Total 350 ml Balance 50 ml Intake Oral 400 ml Output Urine Total 350 ml # Voids 2 General Appearance: Alert, Oriented X3, Cooperative, No acute distress HEENT: Atraumatic, PERRLA, EOMI, Mucous membr. moist/pink Neck: Supple Lungs: Clear to auscultation, Normal air movement Cardiovascular: Regular rate, Normal S1, Normal S2, No murmurs, Gallops, Rubs Abdomen: Normal bowel sounds, Soft, No tenderness Neuro: Cranial nerves 3-12 NL Psych/Mental Status: Mental status NL Medications Current Medications Medications Dose Ordered Sig/Lou Route Start Time Stop Time Status Last Admin Dose Admin Dextrose 50 ml UD PRN IV 05/09/24 11:15 05/10/24 06:34 50 ML Paroxetine HCl 40 mg DAILY PO 05/10/24 10:00 05/10/24 10:20 40 MG Insulin Glargine 20 units BID@0700,2200 SC 05/09/24 22:00 05/10/24 22:02 20 UNITS Hydralazine HCl 10 mg Q6HPRN PRN IV 05/09/24 11:15 Sodium Chloride 1,000 ml @ 100 mls/hr Q10H IV 05/09/24 11:15 05/10/24 19:02 100 MLS/HR Aspirin 81 mg DAILY PO 05/10/24 10:00 05/10/24 10:20 81 MG Atorvastatin Calcium 80 mg HS PO 05/09/24 22:00 05/10/24 22:02 80 MG Morphine Sulfate 2 mg Q30MP PRN IV 05/09/24 11:15 UNV Acetaminophen 650 mg Q6HP PRN PO 05/09/24 11:15 Zolpidem Tartrate 5 mg QHSP PRN PO 05/09/24 11:15 Lorazepam 0.5 mg Q6HP PRN PO 05/09/24 11:15 05/09/24 12:38 0.5 MG Docusate Sodium 100 mg DAILY PO 05/10/24 10:00 Nitroglycerin 0.4 mg Q5MINP PRN SL 05/09/24 11:15 UNV Ondansetron HCl 4 mg Q4HP PRN IV 05/09/24 11:15 Al Hydrox/Mg Hydrox/Simethicone 30 ml Q6HPRN PRN PO 05/09/24 11:15 Nitroglycerin 0.4 mg Q5MINP PRN SL 05/09/24 11:15 Morphine Sulfate 2 mg Q30M PRN IV 05/09/24 11:15 Insulin Human Regular ACHS SC 05/10/24 17:00 Diagnostic Test (Pha) 1 strip ACHS 05/10/24 17:00 05/11/24 06:52 1 STRIP Sacubitril/ Valsartan 1 tab BID PO 05/11/24 10:00 Metoprolol Succinate 25 mg DAILY PO 05/11/24 10:00 Empaglifozin 10 mg DAILY PO 05/11/24 10:00 Spironolactone 25 mg DAILY PO 05/11/24 10:00 Furosemide 20 mg BIDD IV 05/11/24 06:00 05/11/24 06:13 20 MG Laboratory Results Laboratory Tests 05/11/24 06:15 Chemistry Test 05/11/24 06:15 Calcium Level 9.0 mg/dL (8.7-10.4) Urinalysis Test 05/10/24 22:36 Urine Color Light-yellow (Yellow) Urine Clarity Turbid (Clear) H Urine pH 5.5 (5.0-9.0) Urine Specific [place] 1.009 (1.001-1.035) Urine Protein 2+ (Negative) H Urine Ketones Negative (Negative) Urine Blood Trace /uL (Negative) H Urine Nitrite Negative (Negative) Urine Bilirubin Negative (Negative) Urine Urobilinogen Normal mg/dL (Negative) Urine Leukocyte Esterase 2+ /uL (Negative) Urine RBC 13 /hpf (0 - 4) Urine WBC 18 /hpf (0 - 5) Urine Squamous Epithelial Cells Mod /hpf (<5) Urine Bacteria None seen /hpf (None Seen) Urine Hyaline Casts Few /lpf (0 - 2) Urine Mucus Few (None Seen) Urine Yeast (Budding) Loaded /hpf (None Seen) Urine Glucose 3+ mg/dL (Normal) H Labs and/or images reviewed: Labs reviewed by me Assessment/Plan Assessment/Plan NSTEMI Chest pain Patient with troponins greater than 200 Hypertensive urgency Hyperglycemia. Morbid obesity BMI > 30 History of drug abuse. Continuing current management. Continuing with sliding scale insulin and Lantus. Continuing IV fluid. Appreciate Cardiology input. EF only 20%. Waiting to see if Cardiology will do any invasive procedure. Urine drug screen is negative Continue HTN meds. Plan discussed with: Patient My Orders Orders - DEMARCO ODONNELL MD Procedure Category Date Status Time Insulin R (Human) PHA 05/10/24 In Process (Insulin R) 17:00 Glucose Blood PHA 05/10/24 In Process (Accu-Chek Comfort 17:00 Consistent DIET 05/10/24 Transmitted Carb(Ccho)Diabetes Dinner Clean Wound With: ORDERS 05/10/24 Transmitted 18:10 Date of Service: May 11, 2024 Billing Provider: DEMARCO ODONNELL MD Common Visit Codes: [id number] INP/OBS CARE(HIGH) DEMARCO ODONNELL MD May 11, 2024 10:26
[2024-05-11] MEDS: SACUBITRIL-VALSARTAN 24mg/26mg TAB PO SCH (11:09)
[2024-05-11] MEDS: EMPAGLIFLOZIN 10 MG TAB PO SCH (11:10)
[2024-05-11] MEDS: SPIRONOLACTONE 25 MG TAB PO SCH (11:10)
[2024-05-11] MEDS: METOPROLOL SUCCINATE XL 50 MG TAB PO SCH (11:12)
--- NOTE | 2024-05-11 13:37 | DVHPN2 ---
Consult Progress Note Subjective Patient reports: Feels better Objective vital signs Vital Sign Date Time Temp Pulse Resp B/P (MAP) Pulse Ox O2 Delivery O2 Flow Rate FiO2 05/11/24 13:00 98.0 77 17 167/95 (119) 94 98.0 05/10/24 20:00 Room Air* 0 21 Total Intake and Output 05/10/24 05/10/24 05/11/24 15:00 23:00 07:00 Intake Total 0 ml 0 ml 400 ml Output Total 350 ml Balance 0 ml -350 ml 400 ml medications Current Medications Medications Dose Ordered Sig/Lou Route Start Time Stop Time Status Last Admin Dose Admin Dextrose 50 ml UD PRN IV 05/09/24 11:15 05/10/24 06:34 50 ML Paroxetine HCl 40 mg DAILY PO 05/10/24 10:00 05/11/24 11:09 40 MG Insulin Glargine 20 units BID@0700,2200 SC 05/09/24 22:00 05/10/24 22:02 20 UNITS Hydralazine HCl 10 mg Q6HPRN PRN IV 05/09/24 11:15 Sodium Chloride 1,000 ml @ 100 mls/hr Q10H IV 05/09/24 11:15 05/10/24 19:02 100 MLS/HR Aspirin 81 mg DAILY PO 05/10/24 10:00 05/11/24 11:10 81 MG Atorvastatin Calcium 80 mg HS PO 05/09/24 22:00 05/10/24 22:02 80 MG Morphine Sulfate 2 mg Q30MP PRN IV 05/09/24 11:15 UNV Acetaminophen 650 mg Q6HP PRN PO 05/09/24 11:15 Zolpidem Tartrate 5 mg QHSP PRN PO 05/09/24 11:15 Lorazepam 0.5 mg Q6HP PRN PO 05/09/24 11:15 05/09/24 12:38 0.5 MG Docusate Sodium 100 mg DAILY PO 05/10/24 10:00 Nitroglycerin 0.4 mg Q5MINP PRN SL 05/09/24 11:15 UNV Ondansetron HCl 4 mg Q4HP PRN IV 05/09/24 11:15 Al Hydrox/Mg Hydrox/Simethicone 30 ml Q6HPRN PRN PO 05/09/24 11:15 Nitroglycerin 0.4 mg Q5MINP PRN SL 05/09/24 11:15 Morphine Sulfate 2 mg Q30M PRN IV 05/09/24 11:15 Insulin Human Regular ACHS SC 05/10/24 17:00 Diagnostic Test (Pha) 1 strip ACHS 05/10/24 17:00 05/11/24 12:16 1 STRIP Sacubitril/ Valsartan 1 tab BID PO 05/11/24 10:00 05/11/24 11:09 1 TAB Metoprolol Succinate 25 mg DAILY PO 05/11/24 10:00 05/11/24 11:12 25 MG Empaglifozin 10 mg DAILY PO 05/11/24 10:00 05/11/24 11:10 10 MG Spironolactone 25 mg DAILY PO 05/11/24 10:00 05/11/24 11:10 25 MG Furosemide 20 mg BIDD IV 05/11/24 06:00 05/11/24 06:13 20 MG laboratory and microbiology Laboratory Tests 05/11/24 06:15 Test 05/11/24 06:15 Range/Units Serum Glucose 61 L 74-106 mg/dL Problem List/Assessment/Plan Problem List/Assessment/Plan Problem List/Assessment/Plan Hypertensive urgency NSTEMI type II secondary to above Acute on chronic decompensated HFrEF, NYHA class III, newly diagnosed Hyperlipidemia Liver disease Type 2 diabetes mellitus, uncontrolled (Hgb A1c 14.0%) ?Cancer History of alcohol abuse Medical noncompliance Plan/Recommendation (Dr. Mcarthur): * Echocardiogram reveals EF 20% * Initiate guideline directed medical therapy for CHF * Strict intake and output, daily weight, maintain fluid restriction * Preload and afterload reduction * Aggressive BP control * Renal ultrasound to rule out renal artery stenosis * Cardiac surveillance * UDS Echocardiogram reveals EF of 20%. Patient denies any previous history of congestive heart failure. Patient denies any previous ischemic workup. Patient will need ischemic workup, possibly outpatient status. UDS negative. Titrate EGD MT as tolerated. Thank you for allowing us to care for this patient. Please call with any questions or concerns. This medical document was created using an electronic medical record system with voice recognition software and computerized dictation system. Although this document has been carefully reviewed, there might still be some phonetic and typographical errors. Occasional wrong-word or ``sound-alike substitutions may have occurred due to the inherent limitations of voice recognition software. These areas are purely typographical due to imperfections of the software programs and do not reflect any compromise in the patient's medical care. Please read the chart carefully and recognize, using context, where these substitutions have occurred. Plan discussed with: Patient Date of Service: May 11, 2024 Billing Provider: BA MCARTHUR MD Common Visit Codes: [id number] INP/OBS CARE(HIGH) JET HILL [facility] May 11, 2024 13:37
[2024-05-11] MEDS: InsuLIN REG 1unit/0.01ml Soln (100units/ml) SC SCH (23:31)
[2024-05-11] MEDS: ACCU-CHEK COMFORT CURVE STRIP VI SCH (23:32)
[2024-05-12] VITALS (9 sets, daily range): BP systolic 124–183; BP diastolic 68–98; PULSE 73–85; RESP 17–18; TEMP 97.7–98.8; O2SAT 91–99
[2024-05-12] MEDS: hydrALAZINE HCL 20 MG/ML VL IV PRN (01:12)
--- NOTE | 2024-05-12 13:07 | DVHPN2 ---
Subjective The patient is seen and examined at bedside. Very tired today. No fever or chill. Reviewed: Care Plan, H&P, Labs, Medications, Previous Orders, Radiology Changes from previous H/P or p: No Changes Eyes: No Pain, No Vision change, No Conjunctivae inflammation, No Eyelid inflammation, No Other, No Redness ENT: No Ear pain, No Ear discharge, No Nose pain, No Nose discharge, No Nose congestion, No Mouth pain, No Mouth swelling, No Throat pain, No Throat swelling, No Other Cardiovascular: Chest Pain, Palpitations; No Orthopnea, No Paroxysmal Noc. Dyspnea, No Edema, No Lt Headedness, No Other Respiratory: Cough, Dry, Shortness of breath; No SOB with excertion, No Wheezing, No Hemoptysis, No Pleuritic Pain, No Sputum, No Other Gastrointestinal: No Nausea, No Vomiting, No Abdominal Pain, No Diarrhea, No Constipation, No Melena, No Hematochezia, No Other Genitourinary: No Dysuria, No Frequency, No Incontinence, No Hematuria, No Retention, No Other Musculoskeletal: No other, No neck pain, No shoulder pain, No arm pain, No back pain, No hand pain, No leg pain, No foot pain Skin: No Rash, No Lesions, No Jaundice, No Bruising, No Other Objective Vitals Vital Signs Date Time Temp Pulse Resp B/P (MAP) Pulse Ox O2 Delivery O2 Flow Rate FiO2 05/12/24 12:47 97.9 82 18 133/73 (93) 91 97.9 05/12/24 08:00 Room Air* 0 21 Intake/Output Intake and Output 05/12/24 07:00 Intake Total 970 ml Balance 970 ml Intake Oral 470 ml IV Total 500 ml # Voids 3 General Appearance: Alert, Oriented X3, Cooperative, No acute distress HEENT: Atraumatic, PERRLA, EOMI, Mucous membr. moist/pink Neck: Supple Lungs: Clear to auscultation, Normal air movement Cardiovascular: Regular rate, Normal S1, Normal S2, No murmurs, Gallops, Rubs Abdomen: Normal bowel sounds, Soft, No tenderness Neuro: Cranial nerves 3-12 NL Psych/Mental Status: Mental status NL Medications Current Medications Medications Dose Ordered Sig/Lou Route Start Time Stop Time Status Last Admin Dose Admin Paroxetine HCl 40 mg DAILY PO 05/10/24 10:00 05/12/24 09:39 40 MG Insulin Glargine 20 units BID@0700,2200 SC 05/09/24 22:00 05/10/24 22:02 20 UNITS Hydralazine HCl 10 mg Q6HPRN PRN IV 05/09/24 11:15 05/12/24 01:12 10 MG Sodium Chloride 1,000 ml @ 100 mls/hr Q10H IV 05/09/24 11:15 05/12/24 09:37 100 MLS/HR Aspirin 81 mg DAILY PO 05/10/24 10:00 05/12/24 09:39 81 MG Atorvastatin Calcium 80 mg HS PO 05/09/24 22:00 05/11/24 21:30 80 MG Morphine Sulfate 2 mg Q30MP PRN IV 05/09/24 11:15 UNV Acetaminophen 650 mg Q6HP PRN PO 05/09/24 11:15 Zolpidem Tartrate 5 mg QHSP PRN PO 05/09/24 11:15 Lorazepam 0.5 mg Q6HP PRN PO 05/09/24 11:15 05/09/24 12:38 0.5 MG Docusate Sodium 100 mg DAILY PO 05/10/24 10:00 05/12/24 09:38 100 MG Nitroglycerin 0.4 mg Q5MINP PRN SL 05/09/24 11:15 UNV Ondansetron HCl 4 mg Q4HP PRN IV 05/09/24 11:15 Al Hydrox/Mg Hydrox/Simethicone 30 ml Q6HPRN PRN PO 05/09/24 11:15 Nitroglycerin 0.4 mg Q5MINP PRN SL 05/09/24 11:15 Morphine Sulfate 2 mg Q30M PRN IV 05/09/24 11:15 Sacubitril/ Valsartan 1 tab BID PO 05/11/24 10:00 05/12/24 09:38 1 TAB Metoprolol Succinate 25 mg DAILY PO 05/11/24 10:00 05/12/24 09:38 25 MG Empaglifozin 10 mg DAILY PO 05/11/24 10:00 05/12/24 09:39 10 MG Spironolactone 25 mg DAILY PO 05/11/24 10:00 05/12/24 09:39 25 MG Furosemide 20 mg BIDD IV 05/11/24 06:00 05/12/24 06:44 20 MG Diagnostic Test (Pha) 1 strip IQ4HR 05/12/24 00:00 05/12/24 09:36 1 STRIP Insulin Human Regular IQ4HR SC 05/12/24 00:00 Dextrose 50 ml UD PRN IV 05/11/24 22:45 Laboratory Results Laboratory Tests 05/11/24 06:15 Urinalysis Test 05/10/24 22:36 Urine Color Light-yellow (Yellow) Urine Clarity Turbid (Clear) H Urine pH 5.5 (5.0-9.0) Urine Specific [place] 1.009 (1.001-1.035) Urine Protein 2+ (Negative) H Urine Ketones Negative (Negative) Urine Blood Trace /uL (Negative) H Urine Nitrite Negative (Negative) Urine Bilirubin Negative (Negative) Urine Urobilinogen Normal mg/dL (Negative) Urine Leukocyte Esterase 2+ /uL (Negative) Urine RBC 13 /hpf (0 - 4) Urine WBC 18 /hpf (0 - 5) Urine Squamous Epithelial Cells Mod /hpf (<5) Urine Bacteria None seen /hpf (None Seen) Urine Hyaline Casts Few /lpf (0 - 2) Urine Mucus Few (None Seen) Urine Yeast (Budding) Loaded /hpf (None Seen) Urine Glucose 3+ mg/dL (Normal) H Labs and/or images reviewed: Labs reviewed by me Assessment/Plan Assessment/Plan NSTEMI Chest pain Patient with troponins greater than 200 Hypertensive urgency Hyperglycemia. Morbid obesity BMI > 30 History of drug abuse. Continuing current management. Continuing with sliding scale insulin and Lantus. Continuing IV fluid. Appreciate Cardiology input. EF only 20%. Novelty Maker recommend medical management. No procedure due to poor compliance. Continuing hypertensive medication Urine drug screen is negative Discharge planning. Plan discussed with: Patient Date of Service: May 12, 2024 Billing Provider: DEMARCO ODONNELL MD Common Visit Codes: [id number] INP/OBS CARE(HIGH) DEMARCO ODONNELL MD May 12, 2024 13:07
--- NOTE | 2024-05-12 13:21 | DVHPN2 ---
Consult Progress Note Subjective Patient reports: No new complaints Review of Systems: CVS:Normal (Denies chest pain, palpitation, shortness of breath) Objective vital signs Vital Sign Date Time Temp Pulse Resp B/P (MAP) Pulse Ox O2 Delivery O2 Flow Rate FiO2 05/12/24 12:47 97.9 82 18 133/73 (93) 91 97.9 05/12/24 08:00 Room Air* 0 21 Total Intake and Output 05/11/24 05/11/24 05/12/24 15:00 23:00 07:00 Intake Total 220 ml 750 ml Balance 220 ml 750 ml medications Current Medications Medications Dose Ordered Sig/Lou Route Start Time Stop Time Status Last Admin Dose Admin Paroxetine HCl 40 mg DAILY PO 05/10/24 10:00 05/12/24 09:39 40 MG Insulin Glargine 20 units BID@0700,2200 SC 05/09/24 22:00 05/10/24 22:02 20 UNITS Hydralazine HCl 10 mg Q6HPRN PRN IV 05/09/24 11:15 05/12/24 01:12 10 MG Sodium Chloride 1,000 ml @ 100 mls/hr Q10H IV 05/09/24 11:15 05/12/24 09:37 100 MLS/HR Aspirin 81 mg DAILY PO 05/10/24 10:00 05/12/24 09:39 81 MG Atorvastatin Calcium 80 mg HS PO 05/09/24 22:00 05/11/24 21:30 80 MG Morphine Sulfate 2 mg Q30MP PRN IV 05/09/24 11:15 UNV Acetaminophen 650 mg Q6HP PRN PO 05/09/24 11:15 Zolpidem Tartrate 5 mg QHSP PRN PO 05/09/24 11:15 Lorazepam 0.5 mg Q6HP PRN PO 05/09/24 11:15 05/09/24 12:38 0.5 MG Docusate Sodium 100 mg DAILY PO 05/10/24 10:00 05/12/24 09:38 100 MG Nitroglycerin 0.4 mg Q5MINP PRN SL 05/09/24 11:15 UNV Ondansetron HCl 4 mg Q4HP PRN IV 05/09/24 11:15 Al Hydrox/Mg Hydrox/Simethicone 30 ml Q6HPRN PRN PO 05/09/24 11:15 Nitroglycerin 0.4 mg Q5MINP PRN SL 05/09/24 11:15 Morphine Sulfate 2 mg Q30M PRN IV 05/09/24 11:15 Sacubitril/ Valsartan 1 tab BID PO 05/11/24 10:00 05/12/24 09:38 1 TAB Metoprolol Succinate 25 mg DAILY PO 05/11/24 10:00 05/12/24 09:38 25 MG Empaglifozin 10 mg DAILY PO 05/11/24 10:00 05/12/24 09:39 10 MG Spironolactone 25 mg DAILY PO 05/11/24 10:00 05/12/24 09:39 25 MG Furosemide 20 mg BIDD IV 05/11/24 06:00 05/12/24 06:44 20 MG Diagnostic Test (Pha) 1 strip IQ4HR 05/12/24 00:00 05/12/24 09:36 1 STRIP Insulin Human Regular IQ4HR SC 05/12/24 00:00 Dextrose 50 ml UD PRN IV 05/11/24 22:45 Examination: GENERAL:Abnormal (Sleeping, patient noncompliant pulling out IV refusing treatment.), CVS:Normal (Telemetry reviewed consistent with sinus rhythm at 75 beats per minute.) laboratory and microbiology Laboratory Tests 05/11/24 06:15 Test 05/11/24 06:15 Range/Units Serum Glucose 61 L 74-106 mg/dL Problem List/Assessment/Plan Problem List/Assessment/Plan Problem List/Assessment/Plan Hypertensive urgency NSTEMI type II secondary to above Acute on chronic decompensated HFrEF, NYHA class III, newly diagnosed Hyperlipidemia Liver disease Type 2 diabetes mellitus, uncontrolled (Hgb A1c 14.0%) ?Cancer History of alcohol abuse Medical noncompliance Plan/Recommendation (Dr. Mcarthur): * Echocardiogram reveals EF 20% * Initiate guideline directed medical therapy for CHF * Strict intake and output, daily weight, maintain fluid restriction * Preload and afterload reduction * Aggressive BP control * Renal ultrasound to rule out renal artery stenosis * Cardiac surveillance * UDS Echocardiogram reveals EF of 20%. Patient denies any previous history of congestive heart failure. Patient denies any previous ischemic workup. Patient noncompliant with treatment while in hospital pulling out IV and states does not want any procedures. Patient not a good candidate for continued ischemic workup due to noncompliance. Recommend continuation of medical management with GDMT and titrate as tolerated. Patient may follow up outpatient for ischemic workup if she decides that she would like to have it at a later time. UDS negative. Thank you for allowing us to care for this patient. Please call with any questions or concerns. This medical document was created using an electronic medical record system with voice recognition software and computerized dictation system. Although this document has been carefully reviewed, there might still be some phonetic and typographical errors. Occasional wrong-word or ``sound-alike substitutions may have occurred due to the inherent limitations of voice recognition software. These areas are purely typographical due to imperfections of the software programs and do not reflect any compromise in the patient's medical care. Please read the chart carefully and recognize, using context, where these substitutions have occurred. Plan discussed with: Patient Dietary Evaluation Review Recommendations by RD: Dietary education by RD Comments: 1. Refer to outpatient RD/CDCES 2. Continue current plan of care. Expected Outcomes/Goals: 1. Patient diabetes-related knowledge to improve 2. Patient eating habits to improve 3. Patient labs and PO intake to improve Date of Service: May 12, 2024 Billing Provider: BA MCARTHUR MD Common Visit Codes: [id number] INP/OBS CARE(HIGH) [facility] May 12, 2024 13:21
[2024-05-12] MEDS: DEXTROSE (50%) 50ML SYRG IV PRN (16:57)
[2024-05-13 01:00] VITALS: BP 151/79; PULSE 94; RESP 19; TEMP 98.1; O2SAT 96
[2024-05-13 05:00] VITALS: BP 140/76; PULSE 76; RESP 18; TEMP 97.5; O2SAT 95
[2024-05-13 08:00] VITALS: PULSE 80; PULSE 82; RESP 18; O2SAT 93
[2024-05-13] MEDS ORDERED: SACU1TAB PO (11:22)
[2024-05-13] MEDS ORDERED: ASPI-325 PO (11:22)
[2024-05-13] MEDS ORDERED: SPIR25TA PO (11:22)
[2024-05-13] MEDS ORDERED: ATOR80TA PO (11:22)
[2024-05-13] MEDS ORDERED: EMPA1TAB PO (11:22)
[2024-05-13] MEDS ORDERED: METO25TA93 PO (11:22)
--- NOTE | 2024-05-13 11:24 | DVHDS2 ---
Discharge Summary Date of Admission May 09, 2024 at 11:13 Date of Discharge: May 13, 2024 Admitting Diagnosis NSTEMI Chest pain Patient with troponins greater than 200 Hypertensive urgency Hyperglycemia. Morbid obesity BMI > 30 History of drug abuse. Labs/Diagnostic Data: Laboratory Results Test 05/13/24 08:45 05/11/24 06:15 05/10/24 22:36 05/10/24 05:14 POC Glucose 83 mg/dl (70-106) White Blood Count 8.4 10^3/uL (4.4-10.8) Red Blood Count 5.61 10^6/uL (4.0-5.20) Hemoglobin 16.8 g/dL (12.2-16.2) Hematocrit 49.5 % (36.0-46.0) Mean Corpuscular Volume 88.2 fL (80.0-100.0) Mean Corpuscular Hemoglobin 29.9 pg (28.0-32.0) Mean Corpuscular Hemoglobin Concent 33.9 g/dL (32.0-36.0) Red Cell Distribution Width 14.8 % (11.8-14.3) Platelet Count 205 10^3/uL (140-450) Mean Platelet Volume 9.2 fL (6.9-10.8) Neutrophils (%) (Auto) 86.8 % (37.0-80.0) Lymphocytes (%) (Auto) 7.1 % (10.0-50.0) Monocytes (%) (Auto) 5.9 % (0.0-12.0) Eosinophils (%) (Auto) 0.0 % (0.0-7.0) Basophils (%) (Auto) 0.2 % (0.0-2.0) Neutrophils # (Auto) 7.3 10 ^3/uL (1.6-8.6) Lymphocytes # (Auto) 0.6 10 ^3/uL (0.4-5.4) Monocytes # (Auto) 0.5 10 ^3/uL (0-1.3) Eosinophils # (Auto) 0 10 ^3/uL (0-0.8) Basophils # (Auto) 0 10 ^3/uL (0-0.2) Nucleated Red Blood Cells 0.2 % Sodium Level 133 mmol/L (136-145) Potassium Level 3.9 mmol/L (3.5-5.1) Chloride Level 101 mmol/L (98-107) Carbon Dioxide Level 26 mmol/L (20-31) Anion Gap 6 (5-15) Blood Urea Nitrogen 16 mg/dL (9-23) Creatinine 0.55 mg/dL (0.550-1.02) Glomerular Filtration Rate Calc 108 mL/min (>90) BUN/Creatinine Ratio 29.1 (10.0-20.0) Serum Glucose 61 mg/dL (74-106) Calcium Level 9.0 mg/dL (8.7-10.4) Urine Color Light-yellow (Yellow) Urine Clarity Turbid (Clear) Urine pH 5.5 (5.0-9.0) Urine Specific Pinch 1.009 (1.001-1.035) Urine Protein 2+ (Negative) Urine Ketones Negative (Negative) Urine Blood Trace /uL (Negative) Urine Nitrite Negative (Negative) Urine Bilirubin Negative (Negative) Urine Urobilinogen Normal mg/dL (Negative) Urine Leukocyte Esterase 2+ /uL (Negative) Urine RBC 13 /hpf (0 - 4) Urine WBC 18 /hpf (0 - 5) Urine Squamous Epithelial Cells Mod /hpf (<5) Urine Bacteria None seen /hpf (None Seen) Urine Hyaline Casts Few /lpf (0 - 2) Urine Mucus Few (None Seen) Urine Yeast (Budding) Loaded /hpf (None Seen) Urine Glucose 3+ mg/dL (Normal) Urine Opiates Screen Neg (NEGATIVE) Urine Fentanyl Screen Neg (NEGATIVE) Urine Barbiturates Screen Neg (NEGATIVE) Urine Phencyclidine Screen Neg (NEGATIVE) Urine Amphetamines Screen Neg (NEGATIVE) Urine Benzodiazepines Screen Neg (NEGATIVE) Urine Cocaine Screen Neg (NEGATIVE) Urine Cannabinoids Screen Neg (NEGATIVE) Hemoglobin A1c > 14.0 % A1C (<5.7) Magnesium Level 2.0 mg/dL (1.6-2.6) Troponin I High Sensitivity 220 ng/L (</=34) B-Type Natriuretic Peptide 1018.29 pg/mL (0-100) Triglycerides Level 103 mg/dL (< 150) Cholesterol Level 123 mg/dL (< 200) LDL Cholesterol 71 mg/dL (< 100) HDL Cholesterol 36 mg/dL (40-59) Thyroid Stimulating Hormone (TSH) 2.85 uIU/mL (0.55-4.78) Test 05/09/24 09:39 Total Bilirubin 0.5 mg/dL (0.2-1.0) Aspartate Amino Transferase (AST) 28 U/L (13-40) Alanine Aminotransferase (ALT) 33 U/L (7-40) Alkaline Phosphatase 169 U/L (46-116) Total Protein 6.0 g/dL (5.7-8.2) Albumin 3.3 g/dL (3.2-4.8) Other Laboratory Tests 05/11/24 06:15 Brief Hx & Hospital Course: This is a 54 years old patient with past medical history hypertension, diabetes, alcohol abuse, tobacco abuse came to emergency department because of chest pain and abdominal pain. Patient said she had a history of abdominal cancer but did not know which one. The patient was found to have troponin level elevated up to 200. Patient does have non ST elevation HI. Return Checker see the patient. Echo showed EF of 20% by visual estimate,dilated LV,moderate LVH noted,global LV dysfunction,RV dysfunction noted biatrial enlargement,moderate tricuspid regurgitation,small circumferential pericardial effusion note. Their recommendation is cardiac catheterization. The patient however refused and adamant that she not going to have a cardiac catheterization. Cardiology recommend medical management with beta trini, statin and aspirin. Patient also was started on Entresto and Jardiance. I am discharge the patient home today. Advised the patient to follow up with Cardiology per schedule. Follow up with PCP 1-2 weeks. Activity as tolerated. Diet low-salt low-cholesterol 2000 ADA calorie diet Physical exam: HEENT: Normocephalic atraumatic pupils equal react to light and accommodation. Extraocular muscles intact, conjunctiva pink, oropharynx moist, no thrush, no exudate. Lymphatic: No lymphadenopathy Cardiovascular exam: S1, S2 was heard. No murmurs, rubs, gallops Lung: Clear on auscultation bilaterally, no wheeze, rale, rhonchi. GI: Abdominal soft, nondistended, nontenderness, positive bowel sounds. Extremity: No crepitus, cyanosis, edema. Pedal pulses present bilateral. Full range of motion. Skin: Normal turgor, no rash. Psych: Alert, oriented x3. Neurology: No focal deficits, cranial nerve II to XII grossly intact. Condition at Discharge: Stable Final Diagnosis/Problems List NSTEMI Chest pain Patient with troponins greater than 200 Hypertensive urgency Hyperglycemia. Morbid obesity BMI > 30 History of drug abuse. Medical noncompliance Discharge Disposition: Home Discharge Instruct/Medications Diet: Consistent carbohydrate, Cardiac 2g Na,low cholest Activity: No Restrictions, As Tolerated Follow Up/Referral: pcp 1-2 weeks Medications: See med lists Discharge Statement: "Patient was advised to return to the ER or call 911 if any headaches, dizziness, shortness of breath, chest pain, abdominal pain, bleeding, fevers, or worsening of medical condition. Patient was counseled about treatment plan, medications, possible side effects, patientverbalized understanding. All questions were answered to the best of my ability. This discharge took greater then 30 minutes in planning, reviewing documentation, counseling the patient, and discussing with other team members." ASSESSMENT ASSESSMENT Assessment NSTEMI Date of Service: May 13, 2024 Billing Provider: DEMARCO ODONNELL MD Common Visit Codes: 75810-VEO/OBS DISCH DAY >30min DEMARCO ODONNELL MD May 13, 2024 11:23
[2024-05-13 13:30] VITALS: BP 158/86; PULSE 75; RESP 16; TEMP 97.6; O2SAT 94
--- NOTE | 2024-05-14 14:58 | ECG ---
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
== END 2024-05-13 16:50 | disposition home or self-care (01) | DRG 190 ==
LOC: EDUNIT# 09:24 → EDBD 09:24 → ER 09:24 → TELE 11:13 → TELE-WESTW 17:43
PROVIDERS: ADMIT Hospitalist; ATTEND Internal Medicine
DX: I21.4 Non-ST elevation (NSTEMI) myocardial infarction (principal); I50.23 Acute on chronic systolic (congestive) heart failure; I11.0 Hypertensive heart disease with heart failure; E11.65 Type 2 diabetes mellitus with hyperglycemia; I16.1 Hypertensive emergency; E66.01 Morbid (severe) obesity due to excess calories; F10.20 Alcohol dependence, uncomplicated; Y90.9 Presence of alcohol in blood, level not specified; E78.5 Hyperlipidemia, unspecified; F17.210 Nicotine dependence, cigarettes, uncomplicated; K76.9 Liver disease, unspecified; Z68.30 Body mass index [BMI] 30.0-30.9, adult; Z79.899 Other long term (current) drug therapy; Z90.49 Acquired absence of other specified parts of digestive tract; Z91.128 Patient's intentional underdosing of medication regimen for other reason; Z91.199 Patient's noncompliance with other medical treatment and regimen due to unspecified reason
CPT/HCPCS: 36415; 71045; 80048; 80053; 80061; 80307; 81001; 82962; 83036; 83735; 83880; 84443; 84484; 85025; 93005; 93306; 93975; G0378; J1815; J2405